=== PATIENT | male | born 1975 | race Caucasian/White ===

== ENCOUNTER 2020-12-13 21:39 | Emergency (ER) | payer BC ==
[2020-12-13] MEDS ORDERED: Bacitracin Oint 1 GM U/D Packet TOP ONE (23:02)
--- NOTE | 2020-12-13 23:27 | EDM.PDOC ---
ED HPI GENERAL MEDICAL PROBLEM - General Chief Complaint: Laceration Stated Complaint: FISHHOOK LEFT HAND FINGER Time Seen by Provider: 12/13/20 22:15 Source of Information: Reports: Patient, Family () History Limitations: Reports: No Limitations - History of Present Illness INITIAL COMMENTS - FREE TEXT/NARRATIVE: chief complaint: fish hook to the left 4th finger This is a 45 year old male presents to the ER with his , they were out fishing tonight and he got a fish hook to the left 4th fingertip. unable to remove and here for treatment. Onset: Today Onset Date: 12/13/20 Onset Time: 19:30 Duration: Hour(s): Location: Reports: Other (left 4th finger) Quality: Reports: Ache, Burning Severity: Mild Improves with: Reports: Immobilization Worsens with: Reports: Movement Context: Reports: Other (fish hook injury) Treatments FISHER DIP NET: Reports: Cold Therapy Left Finger-Ring Pain Score (Numeric/FACES): 2 - Related Data Allergies Allergy/AdvReac Type Severity Reaction Status Date / Time No Known Allergies Allergy Verified 12/13/20 23:01 Home Meds: Home Meds NK [No Known Home Meds] 12/13/20 [History] Past Medical History Cardiovascular History: Reports: Heart Murmur Hematologic History: Reports: Blood Transfusion(s) - Infectious Disease History Infectious Disease History: Reports: Chicken Pox Social & Family History - Tobacco Use Tobacco Use Status *Q: Never Tobacco User - Caffeine Use Caffeine Use: Reports: Coffee, Energy Drinks, Soda - Recreational Drug Use Recreational Drug Use: No ED ROS GENERAL - Review of Systems Review Of Systems: See Below Constitutional: Reports: No Symptoms Skin: Reports: Other (fish hook to the left 4th finger) ED EXAM, SKIN/RASH Exam: See Below Exam Limited By: No Limitations General Appearance: Alert, WD/WN, No Apparent Distress Head: Atraumatic, Normocephalic Respiratory/Chest: No Respiratory Distress Extremities: Normal Range of Motion, Other (fish hook noted to the left 4th finger) Neurological: Alert, Oriented, CN II-XII Intact, Normal Cognition, Normal Gait, Normal Reflexes, No Motor/Sensory Deficits Psychiatric: Normal Affect, Normal Mood Skin: Warm, Dry, Wound/Incision Location, Skin: Other (left 4th finger) Characteristics: Other (puncture wound) Associated features: Tenderness Lymphatic: No Adenopathy ED SKIN PROCEDURES - Foreign Body Removal Consent Obtained:: Patient Performing Doctor:: Tori Sanders Foreign Body Other Location Comment:: fish hook noted to the left 4th fingertip Anesthesia Type: Local Findings:: single prong noted to the left 4th fingertip. Complications:: No Course - Vital Signs Last Recorded V/S: Last Vital Signs Temp 97.4 F 12/13/20 22:59 Pulse 75 12/13/20 22:59 Resp 16 12/13/20 22:59 BP 134/95 H 12/13/20 22:59 Pulse Ox 96 12/13/20 22:59 - Orders/Labs/Meds Meds: Medications Discontinued Medications Generic Name Dose Route Start Last Admin Trade Name Freq PRN Reason Stop Dose Admin Bacitracin 1 dose 12/13/20 23:02 12/13/20 23:10 Bacitracin Oint 1 Gm U/D Packet TOP 12/13/20 23:03 1 dose ONETIME ONE Administration Lidocaine HCl 5 ml 12/13/20 23:02 12/13/20 23:11 Lidocaine 1% 5 Ml Sdv INJECT 12/13/20 23:03 5 ml ONETIME ONE Administration - Re-Assessments/Exams Free Text/Narrative Re-Assessment/Exam: 12/13/20 23:37 fish hook removal discussed wound care and follow up Departure - Departure Time of Disposition: 23:38 Disposition: Home, Self-Care 01 Condition: Good Clinical Impression: Removal of foreign body Fish hook injury of finger of left hand Qualifiers: Encounter type: initial encounter Qualified Code(s): S69.92XA - Unspecified injury of left wrist, hand and finger(s), initial encounter - Discharge Information *PRESCRIPTION DRUG MONITORING PROGRAM REVIEWED*: Not Applicable *COPY OF PRESCRIPTION DRUG MONITORING REPORT IN PATIENT FAUSTO: Not Applicable Instructions: Puncture Wound, [id number] Referrals: PCP,None [Primary Care Provider] - Forms: ED Department Discharge Care Plan Goals: Fish hook removal -keep covered x 24 hours then clean and dry - return to ER for any signs of infections- redness, pain, swelling, drainage or not improved Sepsis Event Note (ED) - Evaluation Sepsis Screening Result: No Definite Risk - Focused Exam Vital Signs: Vital Signs Temp Pulse Resp BP Pulse Ox 12/13/20 22:59 97.4 F 75 16 134/95 H 96 12/13/20 22:52 97.4 F 75 16 134/95 H 96 - Problem List & Annotations (1) Fish hook injury of finger of left hand SNOMED Code(s): 80343269, [id number] Code(s): S69.92XA - UNSP INJURY OF LEFT WRIST, HAND AND FINGER(S), INIT ENCNTR Status: Acute Priority: High Current Visit: Yes Qualifiers: Encounter type: initial encounter Qualified Code(s): S69.92XA - Unspecified injury of left wrist, hand and finger(s), initial encounter (2) Removal of foreign body SNOMED Code(s): 12632830 - Removal of foreign body Status: Acute Priority: High Current Visit: Yes - Problem List Review Problem List Initiated/Reviewed/Updated: Yes - Assessment/Plan Plan: Fish hook removal -keep covered x 24 hours then clean and dry - return to ER for any signs of infections- redness, pain, swelling, drainage or not improved
== END 2020-12-13 23:35 | disposition home or self-care (01) ==
LOC: JP.ED 21:39
DX: S60.455A Superficial foreign body of left ring finger, initial encounter (principal); W45.8XXA Other foreign body or object entering through skin, initial encounter
CPT/HCPCS: 99283